=== PATIENT | male | born 1970 | race American Indian/Alaskan Native ===

== ENCOUNTER 2024-06-14 11:04 | Emergency (ER) | payer MEDICARE, OTHER ==
[2024-06-14] MEDS ORDERED: DEXTROSE 50% 50 ML SYR IV ONE ×2 (11:30→11:45)
[2024-06-14 11:32] LABS: BASOPHILS 1.6 % (0-2); EOSINOPHILS 1.3 % (0-6); HEMATOCRIT 38.1 % (35.0-50.0); HEMOGLOBIN 10.6 g/dL (12.0-18.0); LYMPHOCYTES 21.1 % (24-44); MCH 18.4 (27-36); MCV 65.8 fl (81-99); MONOCYTES 12.3 % (0-12); NEUTROPHILS 63.7 % (39-80); PLATELET COUNT 172 K/uL (140-440); RBC 5.78 M/ul (4.3-5.7); RDW 20.3 (10.5-15.0)
[2024-06-14 11:49] LABS: ALBUMIN 3.3 g/dL (3.4-5.0); ALBUMIN/GLOBULIN RATIO 0.83 (1.1-2.4); ALCOHOL, MEDICAL <3 ng/dL (<3); ALKALINE PHOSPHATASE 82 U/L (46-116); ALT (SGPT) 15 U/L (14-59); ANION GAP 10.2 (7-21); AST (SGOT) 13 U/L (15-37); BILIRUBIN, TOTAL 0.6 ng/dL (0.2-1.0); BUN/CREATININE RATIO 15.73 (6.0-28.6); CALCIUM 9.1 mg/dL (8.5-10.1); CARBON DIOXIDE 32 mmol/L (21-32); CHLORIDE 104 mmol/L (98-107); CREATININE, SERUM 0.89 mg/dL (0.70-1.30); GLOMERULAR FILTRATION RATE,EST 102 mL/min (>60); POTASSIUM 4.2 mmol/L (3.5-5.1); PROTEIN, TOTAL 7.3 g/dL (6.4-8.2); UREA NITROGEN 14 mg/dL (7-18)
[2024-06-14 17:17] VITALS: BP 111/75
--- NOTE | 2024-06-15 15:56 | EKG ---
[facility] [address] [facility] [place], [place] [address] Signed Normal sinus rhythm Normal ECG No previous ECGs available Confirmed by Arnold Chaudhary MD ([id number]) on 06/15/2024 3:56:20 PM Electronically Signed By: ARNOLD CHAUDHARY MD 06/15/24 1556 PATIENT NAME: LELO OQUENDO Electrocardiogram DATE OF : 68 PHYSICIAN: ARNOLD CHAUDHARY MD REPORT #: [id number] REPORT IS CONFIDENTIAL AND NOT TO BE RELEASED WITHOUT AUTHORIZATION
== END 2024-06-14 14:25 | disposition home or self-care (01) ==
LOC: ED 11:04
PROVIDERS: Emergency Medicine
DX: E11.649 Type 2 diabetes mellitus with hypoglycemia without coma (principal); S09.90XA Unspecified injury of head, initial encounter; W18.30XA Fall on same level, unspecified, initial encounter
CPT/HCPCS: 36415; 70450; 72125; 80053; 85025; 85060; 93005; 93010; 96374; 99284-25; G0480